=== PATIENT | male | born 1965 | race Caucasian/White ===

== ENCOUNTER 2017-03-30 19:20 | Emergency (ER) | payer OTHER ==
[~2017-03-30] VITALS: Ht 162.6 cm; Wt 63.5 kg
--- NOTE | ~2017-03-30 | EKG ---
PATIENT: GABY SORIANO UNIT #: [id number] Ventricular Rate: 100 BPM Atrial Rate: 100 BPM P-R Interval: 114 ms QRS Duration: 84 ms Q-T Interval: 350 ms QTC Calculation(Bezet): 451 ms P [place]: 45 degrees Calculated R [place]: -32 degrees Calculated T [place]: 62 degrees Diagnosis Line: Normal sinus rhythm Diagnosis Line: Possible Left atrial enlargement Diagnosis Line: Left axis deviation Diagnosis Line: Septal infarct , age undetermined Diagnosis Line: T wave abnormality, consider lateral ischemia Diagnosis Line: Abnormal ECG Diagnosis Line: When compared with ECG of 18-OCT-2014 18:56, Diagnosis Line: QRS axis Shifted left Diagnosis Line: Septal infarct is now Present Diagnosis Line: T wave inversion now evident in Anterior leads Diagnosis Line: Confirmed by BECKY MEEK MD ([id number]) on Diagnosis Line: 04/02/2017 1:49:53 PM INTERPRETING MD: GAVIOTA GALLARDO
[~2017-03-30 19:20] MED LIST: BACTRIM DS PO; CATAPRES-TTS-10.1 MG PO; CLEOCIN HCL300 M1 PO; CLONIDINE PO; CLOTRIMAZOLE15 GM TOP; DICLOFENAC PO; FLEXERIL; FLEXERIL10 M1 PO; GLUCOPHAGE XR500 MG PO; GLUCOPHAGE500 M1 PO; GLUCOPHAGE500 MG PO; IBUPROFEN800 MG; KEFLEX PO; METFORMIN PO; MOBIC; NO MEDICATIONS; PERCOCET5/325; PREDNISONE; ULTRAM PO; VOLTAREN75 MG PO
[2017-03-30 20:14] LABS: URINE APPEARANCE CLEAR; URINE BILIRUBIN NEG (NEG); URINE BLOOD NEG (NEG); URINE COLOR YELLOW; URINE GLUCOSE 300 MG/DL (NORM); URINE KETONE NEG (NEG); URINE LEUKOCYTE ESTERASE NEG (NEG); URINE NITRATE NEG (NEG); URINE PROTEIN NEG (NEG); URINE UROBILINOGEN 0.2 MG/DL (NORM)
[2017-03-30 20:17] LABS: POC - CKMB 1.4 ng/mL (0.0-7.9); POC - MYOGLOBIN 87.1 ng/mL (0.0-169.0); POC - TROPONIN <0.05 ng/mL (<=0.05)
[2017-03-30 20:19] LABS: BASOPHIL% 0.5 % (0-2.5); EOSINOPHIL# 0.1 X10e3 (0-0.7); EOSINOPHIL% 0.9 % (0.0-7.0); HEMATOCRIT 44.9 % (38.0-50.0); LYMPHOCYTE# 2.1 X10e3 (1.0-3.5); LYMPHOCYTE% 27.6 % (17.0-45.0); MEAN CELL VOLUME 92.9 FL (83-96); MEAN CORPUSCULAR HGB CONC 35.5 g/dL (30-36); MEAN PLATELET VOLUME 7.4 FL (6.5-11.5); MONOCYTE# 0.7 X10e3 (0-1.0); NEUTROPHIL# 4.7 X10e3 (1.5-7.1); PLATELET COUNT 222 X10e3 (140-420); RED BLOOD COUNT 4.83 X10e (3.90-5.60); RED CELL DISTRIBUTION WIDTH 13.3 % (11.0-15.5); WHITE BLOOD COUNT 7.6 X10e3 (4.0-10.5)
[2017-03-30 20:22] LABS: DIFF IND NO
[2017-03-30 20:23] LABS: MICRO INDICATED? NO
[2017-03-30 20:30] LABS: ALBUMIN SERUM 3.9 g/dL (3.5-5.0); BILIRUBIN, DIRECT 0.2 mg/dL (0.0-0.2); BILIRUBIN,INDIRECT 0.6 mg/dL (0.0-0.9); BILIRUBIN,TOTAL 0.8 mg/dL (0.2-2.0); CALCIUM SERUM 9.2 mg/dL (8.4-10.2); GLOM FILT RATE Estimated 86.8 mL/min (>60); POTASSIUM 3.3 mmol/L (3.5-5.1)
[2017-03-30 22:09] LABS: POC - MYOGLOBIN 39.7 ng/mL (0.0-169.0); POC - TROPONIN <0.05 ng/mL (<=0.05)
== END 2017-03-30 22:23 | disposition home or self-care (01) ==
LOC: SED 19:20
PROVIDERS: Emergency Medicine
DX: T67.5XXA Heat exhaustion, unspecified, initial encounter (principal); E11.65 Type 2 diabetes mellitus with hyperglycemia; I10 Essential (primary) hypertension; Z79.84 Long term (current) use of oral hypoglycemic drugs; Z90.49 Acquired absence of other specified parts of digestive tract
CPT/HCPCS: 36415; 80048; 80076; 81003; 82553; 82947; 83874; 84484; 85025; 93005; 96361; 96374; 99284; J2405